=== PATIENT | female | born 1995 | race Caucasian/White ===

== ENCOUNTER 2024-12-23 19:00 | Emergency (ER) | payer OTHER, SELFPAY ==
[2024-12-23 19:17] VITALS: BP 149/88; PULSE 96; RESP 20; TEMP 36.7; O2SAT 100
--- NOTE | 2024-12-23 20:21 | ED.GENADULT ---
HPI - General Adult General Chief complaint: Vaginal Bleeding Stated complaint: 17wks preg, known hematoma clot passed Time Seen by Provider: 12/23/24 20:02 History of Present Illness HPI narrative: This is a 29-year-old female with 17 weeks presenting with concerns about vaginal bleeding. Patient has a known subchorionic hemorrhage. Patient has been having some light brown spotting for the last 2 weeks but today passed a small <1 cm clump that she thinks may have been a clot. Patient has a picture of the clot and appears to be a small piece of mucus or flaked skin. Patient is not having any abdominal cramping. No gush of fluids. Patient is very anxious about . They bought a Doppler so they could measure the baby's heart rate at home although they have been unsuccessful in hearing the heart rate. Related Data Allergies Allergy/AdvReac Type Severity Reaction Status Date / Time No Known Allergies Allergy Verified 12/23/24 20:01 Exam Narrative: APPEARANCE: No apparent distress. Head: atraumatic. EYES: EOMI, NOSE: Atraumatic NECK: Trachea midline RESPIRATORY: No increased rate of breathing, CTAB CARDIOVASCULAR: RRR, ABDOMINAL: Gravid belly, soft nontender Point of care OB ultrasound showed an intrauterine fetus with a heart rate of 152. MUSCULOSKELETAl: No obvious deformities NEURO: Alert. Moving 4/4 extremities SKIN:: Warm, dry. Normal color PSYCHIATRIC: Normal affect Course Vital Signs Vital signs: Vital Signs Temperature 98.0 F 12/23/24 19:17 Pulse Rate 96 12/23/24 19:17 Respiratory Rate 20 12/23/24 19:17 Blood Pressure 149/88 H 12/23/24 19:17 Pulse Oximetry 100 12/23/24 19:17 Temperature 98.0 F 12/23/24 19:17 Pulse Rate 96 12/23/24 19:17 Respiratory Rate 20 12/23/24 19:17 Blood Pressure 149/88 H 12/23/24 19:17 Pulse Oximetry 100 12/23/24 19:17 Medical Decision Making [facility] Narrative Medical decision making narrative: -Course: This is a 29 year female 17 weeks gestation presenting with concerns for a possible blood clot. She showed me a picture and while not sure exactly what came out of her vagina (mucus clump, flaked skin?) it is not a blood clot. The fetus is not viable at 17 weeks. Point of care ultrasound confirmed that it still has a normal heart rate. Patient will follow-up with her OBGYN tomorrow morning. Patient was reassured instructed to follow-up with her OBGYN tomorrow morning. Given return precautions bleeding or abdominal. -DDX includes but is not limited to: Threatened miscarriage, subchorionic hemorrhage Vital Signs Vital Signs: Vital Signs Temperature 98.0 F 12/23/24 19:17 Pulse Rate 96 12/23/24 19:17 Respiratory Rate 20 12/23/24 19:17 Blood Pressure 149/88 H 12/23/24 19:17 Pulse Oximetry 100 12/23/24 19:17 Temperature 98.0 F 12/23/24 19:17 Pulse Rate 96 12/23/24 19:17 Respiratory Rate 20 12/23/24 19:17 Blood Pressure 149/88 H 12/23/24 19:17 Pulse Oximetry 100 12/23/24 19:17 Discharge Plan Discharge Clinical Impression: Patient Disposition: Home Condition: Stable Instructions: Antibiotic Form, (ED) Additional Instructions: You are evaluated in the emergency department to passage of a small clump of tissue. This does not look like blood clot. Your baby Has a heart rate of 152. Please call Kitty Johnson's office 1st thing tomorrow morning to arrange close outpatient follow-up. Patient Language: Nigerian Follow-up/Referrals: Genoveva Johnson CNM [Primary Care Provider] - 1 Day (Concerns about her )
[2024-12-23 20:30] VITALS: BP 137/88; PULSE 97; RESP 16; TEMP 36.6; O2SAT 97
--- OUTSIDE RECORDS SUMMARY | 2024-12-23 20:58 | XMS_ITS | Clinical Summary ---
Author Organization [facility] Address [address] [place] [address] Care Team Providers Care Checkman Name Role Phone Unavailable Primary Care Provider Unavailabl e Source Comments [facility],non-owned Affiliates and Associated Physician Practices is amultiple site organization consisting of ambulatory clinics and hospital sitesin [place], [place], [place] and [place]. This disclosure is being madepursuant to the Care Everywhere program and may not contain all information available regarding this patient. Last updated 18.[facility] Allergies No known active allergies Encounters Date Type Department Care Team Description 12/08/2024 2:14 PM CDT - 12/08/2024 11:59 PM CDT Hospital Encounter [facility] [address] [place] [phone] Pili Alatorre MD Discharge Disposition: Home or Self Care from Last 3 Months Social History Tobacco Use Types Packs/Day Years Used Date Smoking Tobacco: Never Assessed Estimated Date of Delivery Comme nts Yes 06/01/2025 Based on Ultraso und Sex and Gender Information Value Date Recorded Sex Assigned at Not on file Legal Sex Female 11:24 AM CDT Gender Identity Not on file Sexual Orientation Not on file Plan of Treatment Upcoming Encounters Date Type Department Care Team (Late st Contact Info) Description 12/29/2024 2:30 PM CDT Appointment [facility] [address] [place] [phone] 12/29/2024 3:15 PM CDT Appointment [facility] [address] [place] [phone] Health Maintenance Due Date Last Done Comments HIV SCREENING 11/07/2010 HEPATITIS C SCREENING 11/03/2013 DTAP/TDAP/TD VACCINES (1 - Tdap) 11/07/2014 HEPATITIS B VACCINE (1 of 3 - 19+ 3-dose series) 11/07/2014 PAP SMEAR 11/07/2016 HPV VACCINE (1 - 3-dose SCDM series) 11/07/2022 COVID-19 VACCINE (1 - 2023-2 5 season) 2024 DEPRESSION SCREENING 05/26/2024 INFLUENZA VACCINE (#1) 2025 Respiratory Syncytial Virus (RSV) Vaccine Pt: or over 60 yrs (1 - Risk 1-dose series) 04/06/2025 ZOSTER VACCINE (1 of 2) 11/07/2045 HIB VACCINE Aged Out No longer eligi ble based on patient's age to complete this topic MENINGOCOCCAL (Group B) VACC INE SHARED DECISION-MAKING Aged Out No longer eligibl e based on patient's age to complete this topic MENINGOCOCCAL GROUPS A/C/Y/W VACCINE Aged Out No longer eligible b ased on patient's age to complete this topic PNEUMOCOCCAL VACCINE Aged Out No long er eligible based on patient's age to complete this topic Procedures Procedure Name Priority Date/Time Associated Diagnosis Comments SONOGRAM - COMPLETE Routine 12/08/2024 2 :32 PM CDT Subchorionic hemorrhage of placenta in second trimester (HCC) Encounter for ultrasound ([facility]) 15 weeks gestation of ([facility]) from Last 3 Months Results * Sonogram - Complete (12/08/2024 2:32 PM CDT) Linked Results Indication ======== Subchorionic hemorrhage History ====== General History Blood group: 0, Rh positive OB History 1 Lab Tests Test Date Result NIPT Low risk, Male Maternal Assessment Physical Exam Height 160 cm, 5 ft 3 in. Weight 110 kg, 243 lb. Initial weight 111 kg, 244 lb. BMI 43.05 kg/m . Initial BMI 43.22 kg/m . Weight gain 0 kg, -1 lb Method ====== Transabdominal ultrasound. View: Sufficient ========= Schwarz . Number of fetuses: 1 Dating ====== Date Details Gest. age JUMA Stated JUMA 15 w + 0 d 06/01/2025 U/S 12/08/2024 based upon AC, BPD, Femur, HC 14 w + 6 d 06/02/2025 Assigned dating based on stated JUMA, selected on 12/08/2024 15 w + 0 d 06/01/2025 General Evaluation Cardiac activity present. FHR 151 bpm. Presentation: variable Placenta: Placental site: anterior, left lateral Umbilical cord: Cord vessels: 3 vessel cord. Insertion site: suboptimal Amniotic fluid: Amount of AF: normal. MVP 4.3 cm Biometry BPD 29.0 mm 15w 2d 55% Hadlock HC 103.9 mm 14w 6d 25% Hadlock AC 91.6 mm 15w 2d 66% Hadlock Femur 13.7 mm 14w 0d 12% Hadlock Humerus 17.4 mm 15w 0d 57% Horace HC / AC 1.13 -/- 6% Hadlock Weight Calculation: EFW 105 g 22% Hadlock EFW (lb,oz) 0 lb 4 oz EFW by Hadlock ([id number]) appropriate Growth Overview Exam date GA BPD (mm) HC (mm) AC (mm) FL (mm) HL (mm) EFW (g) 12/08/2024 15w 0d 29 55% 103.9 25% 91.6 66% 13.7 12% 17.4 57% 105 22% Anatomy The following structures appear normal: Head / Neck Cranium. Abdomen Cord insertion. Stomach. Bladder. Extremities / Skeleton Arms. The following structures could not be adequately visualized: Extremities / Skeleton Legs. Maternal Structures Right Ovary Not visualized Appearance: Adnexa appears normal Left Ovary Not visualized Appearance: Adnexa appears normal Impression ========= Single, live, intrauterine at 15w 0d The size is appropriate. The amniotic fluid volume is normal. Very limited early anatomy, no abnormalities are seen. Left lateral 4.9 x 2.9 x 4.2cm fluid collection, consistent with subchorionic hemorrhage. Follow-up ======== Follow up ultrasound in 3 weeks for anatomy survey, reassess subchorionic hemorrhage and MFM office visit. Rh positive per PNR. Coding ====== Diagnoses O41.8X20: Other specified disorders of amniotic fluid and membranes Procedures 91420: US Preg Uterus >14 weeks [employer] PACS Anatomical Region Laterality Modality Other 12/08/2024 2:32 PM CDT Genoveva Johnson INSULATION CUTTER AND FORMER-PATHOLOGY TEACHER MFM ORDERABLES Edited Result - Final from Last 3 Months Insurance [facility]
== END 2024-12-23 20:52 | disposition home or self-care (01) ==
PROVIDERS: Emergency Provider Emergency Medicine; PCP Advanced Practice Midwife
DX: O20.9 Hemorrhage in early pregnancy, unspecified (principal); Z3A.17 17 weeks gestation of pregnancy
CPT/HCPCS: 99281

== ENCOUNTER 2025-05-19 14:31 | Observation (INO) | payer OTHER, SELFPAY ==
[2025-05-19 14:43] VITALS: BP 131/75; PULSE 104
[2025-05-19 15:01] VITALS: BP 133/83; PULSE 100
[2025-05-19 15:16] VITALS: BP 131/77; PULSE 97
[2025-05-19 15:31] VITALS: BP 125/81; PULSE 95
[2025-05-19 15:46] VITALS: BP 117/76; PULSE 104
[2025-05-19 15:58] VITALS: BMI 46.0
--- NOTE | 2025-05-19 15:58 | OBADM ---
This patient, Andrea Charles, admitted to the OB room Labor/Delivery/Recovery 106 for observation. Patient/family oriented to hospital policies and general routines including ID bracelet, bed and alarms, visiting hours, pain management, procedures, bathroom and other care routines, personal items, smoking policy, room service/diet, and visiting hours. Patient/Family are encouraged to report perceived risks to care and to ask questions if they do not understand what they are told or what they should do.
--- NOTE | 2025-05-25 16:07 | PM.OBTRLD ---
OB - Triage/Final Diagnosis Visit Information Date of evaluation: 05/19/25 Reason for evaluation: threatened labor Comments/Additional reasons for admission: I have assessed the risk for this patient, Andrea Charles, and determined that she would benefit from observation care.
--- NOTE | 2025-06-09 11:46 | PM.OBDSVD ---
DS: Admitting Diagnosis Discharge Date 05/19/25 Admitting Diagnosis IOL DS: Discharge Diagnosis Discharge Diagnosis (1) Delivery by section: Status: Acute OB - DS: Summary OB Procedures : None OB Procedures Intrapartum: OB Procedures: : None Time Spent with Patient Time attestation: Total time spent providing and/or coordinating discharge services: Discharge Plan Discharge Attending physician on discharge: Genoveva Johnson Consulting providers: Genoveva Johnson Discharging Clinician: Genoveva Johnson Patient Disposition: Home Activity: as tolerated Diet: as tolerated Discharge Instructions: OB ANTEPARTUM DISCHARGE INSTRUCTIONS This information is given to help you properly care for yourself at home after your discharge from the hospital. Follow these instructions until your doctor tells you otherwise. DIET: Eat Three Well Balanced Meals per Day ACTIVITY: As Tolerated RETURN TO LABOR AND DELIVERY IF YOU HAVE: Any Change In Baby's Normal Movement Pattern Any Leakage of Fluid Contractions 3-5 Minutes Apart with Increasing Intensity Vaginal Bleeding Contractions may feel like abdominal pain, tightening, cramping, pressure, back ache, or thigh ache. FOLLOW-UP CARE: Keep Next Scheduled Appointment Valuables released to patient or family? N/A Medications from home returned to patient? N/A I Acknowledge Receipt of and Understand the Above Instructions IF YOU HAVE ANY QUESTIONS REGARDING THESE INSTRUCTIONS, PLEASE CALL [phone]. IF PROBLEMS ARISE, CALL YOUR PROVIDER. IF EMERGENCY CARE IS NEEDED, [facility]S EMERGENCY ROOM IS AVAILABLE 24 HOURS A DAY. Patient Language: Cameroonian Stand Alone Forms: General Discharge Information Follow-up/Referrals: Genoveva Johnson, CNM [Certified Nurse Circulation Sales Representative, CUSTOMER PROGRAM MANAGER] Discharge Medications: No Action oxycodone 5 mg Tablet 5 mg PO Q4H PRN (Reason: Pain Rated 4-6) 14 Days Qty: 25 0RF Date of admission: 05/19/25 14:31 Primary Care Provider: PHYSICIAN,RESEARCH ENVIRONMENTAL SCIENTIST Admitting Provider: Jordan Rehman Attending physician on admission: Jordan Rehman Condition: Stable
--- NOTE | 2025-06-10 15:22 | PM.OBTRLD ---
OB - Triage/Final Diagnosis Visit Information Comments/Additional reasons for admission: I have assessed the risk for this patient, Andrea Charles, and determined that she would benefit from observation care. Final Diagnosis (1) Delivery by section: Status: Acute (2) S/P : Code(s): Z98.891 - History of uterine scar from previous surgery Status: Acute
== END 2025-05-19 16:11 | disposition home or self-care (01) ==
PROVIDERS: Admitting Provider Obstetrics & Gynecology; Visit Provider Obstetrics & Gynecology
DX: O47.1 False labor at or after 37 completed weeks of gestation (principal); Z98.891 History of uterine scar from previous surgery; Z3A.38 38 weeks gestation of pregnancy
CPT/HCPCS: G0378; G0379